=== PATIENT | female | born 1945 | race Caucasian/White ===

== ENCOUNTER 2017-06-01 09:14 | Outpatient (CLI) | payer MEDICARE, OTHER | END 2017-06-01 09:15 | LOC: RAD 09:14 | PROVIDERS: ATTEND Family Medicine | DX: Z78.0 Asymptomatic menopausal state (principal) | CPT/HCPCS: 77080 ==

== ENCOUNTER 2018-02-22 13:57 | Outpatient (CLI) | payer MEDICARE, OTHER ==
[2018-02-22 22:35] LABS: eGFR (Non-African) > 60
[2018-02-22 23:35] LABS: MEAN CORPUSCULAR HEMOGLOBIN 30.8 pg (28.0-34.0)
[2018-02-23 06:47] LABS: BASOPHILS % 0.5 (0.0-1.5); EOSINOPHILS % 3.2 % (0.0-6.8); MONOCYTES % 6.3 % (0.0-11.0); NEUTROPHILS # 5.2 # k/uL (1.4-7.7)
== END 2018-02-22 14:00 ==
LOC: LAB 13:57
PROVIDERS: ATTEND Family Medicine
DX: R03.0 Elevated blood-pressure reading, without diagnosis of hypertension (principal); R53.83 Other fatigue; Z13.6 Encounter for screening for cardiovascular disorders
CPT/HCPCS: 36415; 80048; 80061; 84443; 85025

== ENCOUNTER 2019-02-26 11:49 | Outpatient (CLI) | payer MEDICARE, OTHER | END 2019-02-26 11:54 | LOC: LABRHC 11:49 | PROVIDERS: ATTEND Family Medicine | DX: E78.2 Mixed hyperlipidemia (principal); R53.83 Other fatigue | CPT/HCPCS: 80053; 80061; 84443; 85027 ==